=== PATIENT | male | born 1955 | race Caucasian/White ===

== ENCOUNTER 2016-10-20 10:28 | Day surgery (SDC) | payer OTHER ==
[~2016-10-20 10:28] MED LIST: LACTATED RINGERS 1,000 ML IV ONE
[2016-10-20] MEDS ORDERED: fentaNYL 100 MCG/2 ML VIAL IVP ONE (11:40)
[2016-10-20] MEDS ORDERED: MIDAZOLAM 2 MG/2 ML VIAL IVP ONE (11:40)
[2016-10-20] MEDS ORDERED: LACTATED RINGERS 1,000 ML IV ONE (12:02)
[2016-10-20 12:49] VITALS: BP 129/78
== END 2016-10-20 10:29 | disposition home or self-care (01) ==
LOC: SDS 10:28
PROVIDERS: ATTEND Internal Medicine
PROC: 0DBM8ZX Excision of Descending Colon, Via Natural or Artificial Opening Endoscopic, Diagnostic (ICD-10-PCS; 2016-10-20)
PROC: 0DBN8ZX Excision of Sigmoid Colon, Via Natural or Artificial Opening Endoscopic, Diagnostic (ICD-10-PCS; 2016-10-20)
PROC: 0DBH8ZX Excision of Cecum, Via Natural or Artificial Opening Endoscopic, Diagnostic (ICD-10-PCS; principal; 2016-10-20 12:00)
DX: Z12.11 Encounter for screening for malignant neoplasm of colon (principal); D12.0 Benign neoplasm of cecum; D12.4 Benign neoplasm of descending colon; D12.5 Benign neoplasm of sigmoid colon; K64.0 First degree hemorrhoids
CPT/HCPCS: 45380; 45385; J7120; 88305